=== PATIENT | female | born 1980 | race Caucasian/White ===

== ENCOUNTER 2022-03-03 10:44 | Outpatient (CLI) | payer BC | END 2022-03-03 10:45 | disposition home or self-care (01) | LOC: CSHMAMMO 10:44 | PROVIDERS: ATTEND Family Medicine | DX: Z12.31 Encounter for screening mammogram for malignant neoplasm of breast (principal); Z80.3 Family history of malignant neoplasm of breast | CPT/HCPCS: 77063; 77067 ==

== ENCOUNTER 2023-05-10 09:43 | Outpatient (CLI) | payer BC | END 2023-05-10 09:44 | disposition home or self-care (01) | LOC: CSHMAMMO 09:43 | PROVIDERS: ATTEND Internal Medicine | DX: Z12.31 Encounter for screening mammogram for malignant neoplasm of breast (principal); Z80.3 Family history of malignant neoplasm of breast | CPT/HCPCS: 77063; 77067 ==

== ENCOUNTER 2025-08-02 13:04 | Outpatient (CLI) | payer BC | END 2025-08-02 13:05 | disposition home or self-care (01) | LOC: CSHMAMMO 13:04 | PROVIDERS: ATTEND Internal Medicine | DX: Z12.31 Encounter for screening mammogram for malignant neoplasm of breast (principal); Z80.3 Family history of malignant neoplasm of breast; N64.89 Other specified disorders of breast; N63.20 Unspecified lump in the left breast, unspecified quadrant | CPT/HCPCS: 77063; 77067 ==

== ENCOUNTER 2025-08-09 14:44 | Outpatient (CLI) | payer BC | END 2025-08-09 14:45 | disposition home or self-care (01) | LOC: CSHMAMMO 14:44 | PROVIDERS: ATTEND Internal Medicine | DX: N64.89 Other specified disorders of breast (principal) | CPT/HCPCS: G0279 ==